=== PATIENT | male | born 1995 | race Hispanic/Latino ===

== ENCOUNTER 2017-08-09 19:31 | Emergency (ER) | payer SELFPAY ==
[~2017-08-09] VITALS: Ht 177.8 cm; Wt 81.4 kg
[~2017-08-09 19:31] MED LIST: CLEOCIN150 MG PO; IBUPROFEN600 MG PO
[2017-08-09] MEDS ORDERED: CLEOCIN150 MG PO (21:09)
[2017-08-09 21:20] VITALS: BP 112/62
== END 2017-08-09 21:20 | disposition home or self-care (01) | DRG 603 ==
LOC: ED 19:31
DX: L02.413 Cutaneous abscess of right upper limb (principal); B95.61 Methicillin susceptible Staphylococcus aureus infection as the cause of diseases classified elsewhere